=== PATIENT | female | born 1965 | race Caucasian/White ===

== ENCOUNTER 2023-11-11 00:28 | Day surgery (SDC) | payer OTHER, SELFPAY ==
[2023-11-05 15:25] VITALS: BMI 34.3
--- NOTE | 2023-11-05 15:39 | PC.NURSE ---
Report to the Outpatient Waiting Room, entrance under the green pavilion located off [facility], at time _06 on date 11/11/23 . Planned Procedure Time: _814 . Time changes happen often and if your time is changed the preop area will call you the afternoon before. - You and your visitor will be asked to self-screen and do not enter if you have any COVID symptoms. - A mask is optional within the hospital at this time. Patients may have clear liquids (water, carbonated beverages, clear teas, apple juice) until 3 hours prior to surgery with a maximum of 20 ounces. - No food from midnight until time of surgery - Infants may have breast milk until 4 hours before surgery, formula 6 hours prior to surgery. - Children will be allowed to drink immediately following surgery. If applicable, please bring a bottle or sippy cup to assist with drinking. Juice, water, soda, and popsicles are readily available. For infants on formula, please bring formula the day of surgery. Pacifiers are allowed. Take the following medications with a SIP of water the morning of surgery: _buspar, fluoxetine DO NOT STOP ANY OF YOUR OTHER PRESCRIPTION MEDICATIONS PRIOR TO SURGERY ?EXCEPT THE FOLLOWING Medications to discontinue per physician __Vitamins Date to take last dose__3 days prior Please no make-up, nail hungarian, hairspray, perfume, deodorant, or body powder the day of surgery. No jewelry (including any body piercings) or valuables the day of surgery, leave them at home. Please take a shower or bath the night before, or the morning of, surgery with an antibacterial soap. Wear comfortable, loose fitting clothing. Children are encouraged to wear pajamas. - Jewelry must be removed prior to entering the operating room. Rings and piercings that are not removed may be cut off. - The hospital will not accept responsibility for valuables. - Please leave all valuables, including medications, at home the day of surgery. If you are going home after surgery, a licensed chair car driver must drive you home. - NO public transportation without another adult if you receive anesthesia. - We recommend that an adult stay with you for 24 hours following discharge. - We also recommend that you do not drive, make important decision, drink alcoholic beverages, or take any drugs that were not prescribed by your health care provider for at least 24 hours after your discharge time. For Pediatric surgeries, we recommend two adults accompany the child home. Follow any additional instructions given to you from your surgeon. If you or anyone in your household have experienced Covid symptoms in the past week, please notify your surgeon or the nurse liaison at the phone number below for possible testing. Telephone instructions given to _Rona__and asked if any additional questions and then verbalized understanding. Patient advised to call surgeon office or pre surgery nurse liaison [phone] if any additional questions.
--- NOTE | 2023-11-11 07:14 | WPDANESEPPF ---
Anes - Initial Pre Proc Eval Procedure: Operation Date: 11/11/23 08:15 Proposed Procedures p Hysteroscopy Dilation and Curettage - Charmaine Piña MD Date/Time: 11/11/23 07:14 Surgeon: Charmaine Piña MD Pre Op Diagnosis: post menopausal bleeding Patient Data Age: 58 Gender: F Height: 1.63 m Weight: 90.72 kg Last Vital Signs O2 Del Method Room Air 11/05/23 15:21 Allergies Allergy/AdvReac Type Severity Reaction Status Date / Time No Known Allergies Allergy Verified 11/05/23 15:10 Home Medications Medication Instructions Recorded Confirmed Type atorvastatin 20 mg tablet 20 mg PO HS 11/05/23 11/05/23 History buspirone 5 mg tablet 5 mg PO BID 11/05/23 11/05/23 History cyanocobalamin (vitamin B-12) 3,000 mcg PO DAILY 11/05/23 11/05/23 History 3,000 mcg capsule ergocalciferol (vitamin D2) 50,000 50,000 unit PO USEASDIRECTD 11/05/23 11/05/23 History unit tablet fluoxetine 10 mg capsule 10 mg PO DAILY 11/05/23 11/05/23 History meloxicam 15 mg tablet 15 mg PO DAILY 11/05/23 11/05/23 History Patient hx anesthesia problems: none Family hx anesthesia problems: none Results Review: All pre-operative results and documents have been reviewed as part of the pre-operative evaluation. [facility] Past Medical History Medical History (Updated 11/11/23 @ 07:14 by Rory Snell MD) Hyperlipidemia Obesity Social History Social History Smoking status: Never smoker Drinks per week: 2 Alcohol use details: social Living arrangements: with family Spiritual care concerns: No Anes - Eval Final PreProcedure Day of Procedure 11/11/23 07:14 Patient weight: obese Heart: regular rate and rhythm Lungs: clear to auscultation Airway: Mallampati scale Neurological: alert and oriented Last oral intake: >/= 8 hours ASA classification: II Emergent: no Anesthetic plan: proceed Anesthesia type and monitoring: general GIVS and standard monitoring Results Review: All pre-operative results and documents have been reviewed as part of the pre-operative evaluation. Informed Consent: The patient's anesthetic plan and its attendant risks and benefits were discussed with the patient/family/POA. Questions were solicited and answers provided to the satisfaction of the patient/family/POA.
[2023-11-11] MEDS: ACETAMINOPHEN 500 MG TABLET 1000 MG PO (07:20)
--- NOTE | 2023-11-11 07:21 | WPDHPUPDATE1 ---
History and Physical Update Update Date/Time: 11/11/23 07:21 History and Physical has been reviewed, including an updated exam of the patient. There are NO changes in the patient's condition. Risks, benefits, and alternatives have been discussed and questions answered. Patient agrees to proceed with procedure.
--- NOTE | 2023-11-11 07:21 | PM.HPGS ---
History of Present Illness History of Present Illness Consent: Risks, benefits, and alternatives have been discussed and questions answered. Patient agrees to proceed with procedure. Chief complaint: post menopausal bleeding Narrative: Rona Verma is a 58 year old female with postmenopausal bleeding and a thickened endometrium. It was recommended to undergo D&C hysteroscopy. Risks of infection, bleeding, perforation and possible pathology are reviewed. Patient voices understanding and agrees to proceed. Review of Systems Review of Systems: not repeated day of surgery; patient states no changes in status [facility] Past Medical History Medical History (Updated 11/11/23 @ 07:24 by Charmaine Piña MD) Asthma Hyperlipidemia Lichen sclerosus (normal spontaneous vaginal delivery) Obesity Surgical History Surgical History (Updated 11/11/23 @ 07:24 by Charmaine Piña MD) History of laparoscopic cholecystectomy History of left salpingo-oophorectomy secondary to ectopic 2000 Social History Social History Smoking status: Never smoker Drinks per week: 2 Alcohol use details: social Living arrangements: with family Spiritual care concerns: No Meds Home Medications and Allergies Home Medications Medication Instructions Recorded Confirmed Type atorvastatin 20 mg tablet 20 mg PO HS 11/05/23 11/05/23 History buspirone 5 mg tablet 5 mg PO BID 11/05/23 11/05/23 History cyanocobalamin (vitamin B-12) 3,000 mcg PO DAILY 11/05/23 11/05/23 History 3,000 mcg capsule ergocalciferol (vitamin D2) 50,000 50,000 unit PO USEASDIRECTD 11/05/23 11/05/23 History unit tablet fluoxetine 10 mg capsule 10 mg PO DAILY 11/05/23 11/05/23 History meloxicam 15 mg tablet 15 mg PO DAILY 11/05/23 11/05/23 History Allergies Allergy/AdvReac Type Severity Reaction Status Date / Time No Known Allergies Allergy Verified 11/05/23 15:10 Exam Const: General: healthy appearing and alert Orientation/consciousness: patient oriented x3 Resp: Effort & Inspection: normal respiratory effort : External Female Exam: normal external appearance Speculum Exam - Vagina: normal appearance of the vagina and normal vaginal discharge Speculum Exam - Cervix: normal appearance of the cervix Bimanual exam- vagina & uterus: uterine size normal and consistency normal Bimanual Exam- Adnexa, other: normal adnexae and No adnexal tenderness Neuro: General: patient oriented x3 Assessment and Plan Assessment and plan (1) Post-menopausal bleeding: Code(s): N95.0 - Postmenopausal bleeding Status: Acute Assessment and Plan: plan to proceed with D&C hysteroscopy
[2023-11-11 07:29] VITALS: BP 154/64; PULSE 57; RESP 16; TEMP 36.4; O2SAT 100
[2023-11-11 07:30] VITALS: BMI 34.8
[2023-11-11] MEDS: KETOROLAC 15 MG/ML VIAL (*BKC) IV PUSH (08:28)
--- NOTE | 2023-11-11 08:31 | W.PM.PROC2 ---
Procedure Note - Detailed Date of Procedure 11/11/23 Pre-op Diagnosis post menopausal bleeding Post-op Diagnosis Same Procedure Performed D&C hysteroscopy with polypectomy Surgeon Charmaine Piña MD Anesthesia MAC Findings uterus sounds to 8cm multiple large polyps filling the cavity Description of Procedure The patient is taken to the operating room and placed under anesthesia in the dorsal lithotomy position. She was prepped and draped in the usual sterile fashion external cervical stenosis is encountered. Small Hegar dilator is able to pass the external and internal os. The cervix is dilated to a 5 Hegar. The uterus is then sounded to 8cm. The diagnostic hysteroscope was placed and multiple polyps are noted. The medium Aveeta resection device is utilized and all polyps were removed in their entirety. The remainder of the endometrium appears grossly normal and atrophic. The hysteroscope was removed and the sharp OO curette is used to curette the endometrium until a good uterine cry was noted in all areas. All instruments were then removed. Sponge, needle, and instrument counts are correct per the OR staff. Patient is taken to recovery in stable condition. Estimated Blood Loss 5 Drains No Packing No Pathology Yes ( Endometrial shavings and curettings) Complications No immediate complications Condition Stable Disposition PACU
[2023-11-11 08:39] VITALS: BP 163/55; PULSE 49; RESP 14; O2SAT 97
[2023-11-11] MEDS: LACTATED RINGERS 1,000 ML 30 ML IV CONT (08:39)
[2023-11-11 09:00] VITALS: BP 152/63; PULSE 56; RESP 14; O2SAT 98
[2023-11-11] MEDS: oxyCODONE HCL (*CRX) 5 MG TAB IR PO (09:05)
[2023-11-11 09:30] VITALS: BP 150/57; PULSE 47; RESP 14
== END 2023-11-11 09:45 | disposition home or self-care (01) ==
PROVIDERS: Visit Provider Obstetrics & Gynecology Gynecology
PROC: 0U5B8ZZ Destruction of Endometrium, Via Natural or Artificial Opening Endoscopic (ICD-10-PCS; CPT 58563; principal; 2023-11-11 08:15)
DX: N95.0 Postmenopausal bleeding (principal); N84.0 Polyp of corpus uteri; J45.909 Unspecified asthma, uncomplicated; E78.5 Hyperlipidemia, unspecified; L90.0 Lichen sclerosus et atrophicus; E66.9 Obesity, unspecified; Z68.34 Body mass index [BMI] 34.0-34.9, adult; Z98.890 Other specified postprocedural states; Z90.49 Acquired absence of other specified parts of digestive tract
CPT/HCPCS: 58558; 88305; A9270; J1885; J2250; J2405; J2704; J3010; J7120